=== PATIENT | male | born 1995 | race Caucasian/White ===

== ENCOUNTER 2023-10-31 15:44 | Emergency (ER) | payer OTHER ==
--- NOTE | 2023-10-31 15:56 | ED Physician Documentation ---
PD HPI URI - Stated complaint Stated Complaint: COUGH/CONGESTION - Chief complaint Chief Complaint: Resp - Additional information Additional information: Healthy 28-year-old gentleman presenting with cough congestion and URI symptoms of 3 days duration. Slightly worsening he is glad cough productive of some clear phlegm. No measured fevers or myalgias. No problems with taking fluids he is not air hungry or winded. No ill contacts. He has 1 more day of duty before he is can be traveling home to see his family in [place]. Wondering if he is safe for travel. Review of Systems Constitutional: denies: Fever PD PAST MEDICAL HISTORY - Past Medical History Past Medical History: No Cardiovascular: None Respiratory: None Neuro: None Endocrine/Autoimmune: None GI: None : None HEENT: None Psych: None Musculoskeletal: None Derm: None - Past Surgical History Past Surgical History: No - Allergies Allergies/Adverse Reactions: Allergies Allergy/AdvReac Type Severity Reaction Status Date / Time No Known Drug Allergies Allergy Verified 10/31/23 15:48 - Social History Does the pt smoke?: No Smoking Status: Never smoker Does the pt drink ETOH?: No Does the pt have substance abuse?: No - Immunizations Immunizations are current?: Yes - POLST Patient has POLST: No PD ED PE NORMAL - Vitals Vital signs reviewed: Yes - General General: Alert and oriented X 3 - HEENT HEENT: Atraumatic, Moist mucous membranes, Pharynx benign - Cardiac Cardiac: RRR - Respiratory Respiratory: No respiratory distress Results - Vitals Vitals: Vital Signs - 24 hr 10/31/23 15:48 Temperature 36.8 C Heart Rate 100 Respiratory 16 Rate Blood Pressure 130/84 H O2 Saturation 98 Oxygen O2 Source Room air PD Medical Decision Making - ED course ED course: Well-appearing, nontoxic. No sign of pneumonia or lower respiratory tract infection. Most likely a viral URI we discussed the fact that antibiotics not indicated at this time he will closely follow-up with PCP. Departure - Departure Disposition: 01 Home, Self Care Clinical Impression: Upper respiratory tract infection Condition: Good Instructions: ED Viral Syndrome Comments: As mentioned in the emergency department antibiotics are unlikely to provide any relief for your condition and this likely caused by a virus. Would recommend symptomatic management including Mucinex Motrin Tylenol and encouraging fluids b y mouth. Recheck with your doctor in a week if no better. Forms: PCP List
[2023-10-31 15:59] VITALS: BP 130/84; O2SAT 98
== END 2023-10-31 16:08 | disposition home or self-care (01) ==
LOC: ED 15:44
DX: J06.9 Acute upper respiratory infection, unspecified (principal)
CPT/HCPCS: 99281; 99283